=== PATIENT | male | born 1985 | race Caucasian/White ===

== ENCOUNTER 2022-05-13 07:19 | Emergency (ER) | payer BC ==
[2022-05-13] MEDS ORDERED: KETOROLAC 15 MG/ML 1 ML VIAL IVP STA (07:28)
[2022-05-13] MEDS ORDERED: HYDROmorphone 0.5 MG/0.5 ML SYRINGE IVP STA ×2 (07:28→08:25)
--- NOTE | 2022-05-13 07:35 | ED ---
Back Pain HPI - General Chief Complaint: Back Pain/Injury Stated Complaint: Back Pain Time Seen by Provider: 05/13/22 07:22 Source: patient, family, EMS, RN notes reviewed Mode of arrival: EMS Limitations: no limitations - History of Present Illness Initial Comments: This is a 36-year-old male who presents to the emergency department for back pain. On 05/04, the patient had lower back surgery at [facility]. He had replacement of lumbar spinal fusion hardware and replacement of the spinal cord stimulator with Dr. Gutiérrez. His original spinal fusion was done 10 years ago and the spinal cord stimulator was originally placed 3 years ago. They found that he had a fracture through the hardware and the spinal cord stimulator had not been effective. He had been healing well until yesterday, when he started to develop increasing pain. This morning, he felt a pop followed by a talbert of fluid in the lower back, and has had excruciating pain since. EMS gave him ketamine on route little to no relief. Denies any fevers, chills, sore throat, cough, dyspnea, chest pain, palpitations, abdominal pain, nausea, vomiting, diarrhea, or headaches. MD Complaint: back pain Onset/Timin -: days(s) - Related Data Home Medications Medication Instructions Recorded Confirmed Albuterol Inhaler [Ventolin Hfa 2 puff INHALATION QID PRN 01/20/16 01/20/16 Inhaler] Previous Rx's Medication Instructions Recorded Docusate [Colace] 100 mg PO DAILY PRN #12 capsule 01/20/16 Hydrocortisone [Anusol-Hc] 30 gm RC BID 10 Days cream..g. 01/20/16 Allergies Allergy/AdvReac Type Severity Reaction Status Date / Time peanut Allergy Dyspnea Verified 01/20/16 01:17 sulfamethoxazole Allergy Rash/Hives Verified 01/20/16 01:17 [From Bactrim] trimethoprim [From Bactrim] Allergy Rash/Hives Verified 01/20/16 01:17 Review of Systems ROS Statement: Those systems with pertinent positive or pertinent negative responses have been documented in the HPI. ROS Other: All systems not noted in ROS Statement are negative. Past Medical History Past Medical History: No Reported History History of Any Multi-Drug Resistant Organisms: MRSA Additional Past Surgical History / Comment(s): Spinal fusion, vasectomy Past Psychological History: PTSD Past Alcohol Use History: None Reported Past Drug Use History: None Reported General Exam General appearance: alert, in distress Head exam: Present: atraumatic, normocephalic, normal inspection Respiratory exam: Present: normal lung sounds bilaterally. Absent: respiratory distress, wheezes, rales, rhonchi, stridor Cardiovascular Exam: Present: normal rhythm, tachycardia, normal heart sounds. Absent: systolic murmur, diastolic murmur, rubs, gallop, clicks Back exam: Present: tenderness, other (Incision over the lumbar spine. Serous drainage. Surrounding erythema, tenderness, and mild swelling.). Absent: full ROM Neurological exam: Present: alert, oriented X3, CN II-XII intact Psychiatric exam: Present: normal affect, normal mood Skin exam: Present: warm, dry, intact, normal color. Absent: rash Course Vital Signs 05/13/22 05/13/22 05/13/22 07:25 08:00 08:30 Temperature 100.6 F H Pulse Rate 105 H 102 H 100 Respiratory 18 16 16 Rate Blood Pressure 119/82 125/74 111/67 O2 Sat by Pulse 97 96 96 Oximetry 05/13/22 05/13/22 05/13/22 09:00 10:00 10:30 Temperature Pulse Rate 99 93 90 Respiratory 18 16 16 Rate Blood Pressure 108/69 106/65 96/56 O2 Sat by Pulse 97 96 96 Oximetry 05/13/22 11:00 Temperature 99.0 F Pulse Rate 85 Respiratory 16 Rate Blood Pressure 90/55 O2 Sat by Pulse 97 Oximetry Medical Decision Making - Medical Decision Making This is a 36-year-old male who presents to the emergency department for postoperative back pain. Patient noted to be febrile and tachycardic on arrival at 100.6F. He was given Toradol and Dilaudid for the fever and pain control. This offered only minor improvement to his symptoms and he was subsequently given 15 mg of oxycodone. Lab work reveals leukocytosis. Computed tomography scan of the lumbar spine both with and without contrast obtained. COVID is negative. Urinalysis is negative for any signs of infection. Computed tomography scan of the lumbar spine revealed pneumorachis is at L4-L5, attributed to po stoperative changes. However, there was streak artifact, limiting evaluation on the computed tomography scan. Given the tachycardia, leukocytosis, febrile state, and increased drainage/tenderness around the incision, there is concern for the development of a postoperative infection. Patient will be transferred back to [facility] for further evaluation. Dr. Lamar is the accepting ER physician. Patient started on vancomycin prior to transfer. This case was discussed in detail with the attending ED physician. Presentation, findings, and treatment plan discussed in detail as well. - Lab Data Result diagrams: 05/13/22 07:34 05/13/22 07:34 Lab Results 05/13/22 05/13/22 05/13/22 Range/Units 07:34 07:34 07:34 WBC 16.5 H (3.8-10.6) k/uL RBC 4.28 L (4.30-5.90) m/uL Hgb 13.3 (13.0-17.5) gm/dL Hct 38.9 L (39.0-53.0) % MCV 90.9 (80.0-100.0) fL MCH 31.1 (25.0-35.0) pg MCHC 34.2 (31.0-37.0) g/dL RDW 11.8 (11.5-15.5) % Plt Count 251 (150-450) k/uL MPV 7.5 Neutrophils % 80 % Lymphocytes % 10 % Monocytes % 8 % Eosinophils % 1 % Basophils % 0 % Neutrophils # 13.2 H (1.3-7.7) k/uL Lymphocytes # 1.6 (1.0-4.8) k/uL Monocytes # 1.4 H (0-1.0) k/uL Eosinophils # 0.1 (0-0.7) k/uL Basophils # 0.0 (0-0.2) k/uL Sodium 135 L (137-145) mmol/L Potassium 3.7 (3.5-5.1) mmol/L Chloride 100 (98-107) mmol/L Carbon Dioxide 26 (22-30) mmol/L Anion Gap 9 mmol/L BUN 17 (9-20) mg/dL Creatinine 0.82 (0.66-1.25) mg/dL Est GFR (CKD-EPI)AfAm >90 (>60 ml/min/1.73 sqM) Est GFR (CKD-EPI)NonAf >90 (>60 ml/min/1.73 sqM) Glucose 119 H (74-99) mg/dL Plasma Lactic Acid Michael 1.6 (0.7-2.0) mmol/L Calcium 8.6 (8.4-10.2) mg/dL Total Bilirubin 0.5 (0.2-1.3) mg/dL AST 28 (17-59) U/L ALT 65 H (4-49) U/L Alkaline Phosphatase 113 (38-126) U/L Total Protein 5.7 L (6.3-8.2) g/dL Albumin 3.7 (3.5-5.0) g/dL Urine Color Urine Appearance (Clear) Urine pH (5.0-8.0) Ur Specific [place] (1.001-1.035) Urine Protein (Negative) Urine Glucose (UA) (Negative) Urine Ketones (Negative) Urine Blood (Negative) Urine Nitrite (Negative) Urine Bilirubin (Negative) Urine Urobilinogen (<2.0) mg/dL Ur Leukocyte Esterase (Negative) Coronavirus (PCR) (Not Detectd) 05/13/22 05/13/22 Range/Units 08:12 08:12 WBC (3.8-10.6) k/uL RBC (4.30-5.90) m/uL Hgb (13.0-17.5) gm/dL Hct (39.0-53.0) % MCV (80.0-100.0) fL MCH (25.0-35.0) pg MCHC (31.0-37.0) g/dL RDW (11.5-15.5) % Plt Count (150-450) k/uL MPV Neutrophils % % Lymphocytes % % Monocytes % % Eosinophils % % Basophils % % Neutrophils # (1.3-7.7) k/uL Lymphocytes # (1.0-4.8) k/uL Monocytes # (0-1.0) k/uL Eosinophils # (0-0.7) k/uL Basophils # (0-0.2) k/uL Sodium (137-145) mmol/L Potassium (3.5-5.1) mmol/L Chloride (98-107) mmol/L Carbon Dioxide (22-30) mmol/L Anion Gap mmol/L BUN (9-20) mg/dL Creatinine (0.66-1.25) mg/dL Est GFR (CKD-EPI)AfAm (>60 ml/min/1.73 sqM) Est GFR (CKD-EPI)NonAf (>60 ml/min/1.73 sqM) Glucose (74-99) mg/dL Plasma Lactic Acid Michael (0.7-2.0) mmol/L Calcium (8.4-10.2) mg/dL Total Bilirubin (0.2-1.3) mg/dL AST (17-59) U/L ALT (4-49) U/L Alkaline Phosphatase (38-126) U/L Total Protein (6.3-8.2) g/dL Albumin (3.5-5.0) g/dL Urine Color Yellow Urine Appearance Clear (Clear) Urine pH 5.5 (5.0-8.0) Ur Specific [place] >1.050 H (1.001-1.035) Urine Protein Trace H (Negative) Urine Glucose (UA) Negative (Negative) Urine Ketones Negative (Negative) Urine Blood Negative (Negative) Urine Nitrite Negative (Negative) Urine Bilirubin Negative (Negative) Urine Urobilinogen <2.0 (<2.0) mg/dL Ur Leukocyte Esterase Negative (Negative) Coronavirus (PCR) Not Detected (Not Detectd) - Radiology Data Radiology results: report reviewed, image reviewed Disposition Clinical Impression: Postoperative pain after spinal surgery Disposition: OTHER INSTITUTION NOT DEFINED Referrals: [facility],Clinic [Primary Care Provider] - 1-2 days - Out of Hospital Transfer - Req. Specs Out of Hospital Transfer - Requested Specifics: Other Emergency Center ([facility]
[2022-05-13 07:56] LABS: Basophils % (A) 0 %; Eosinophils # (A) 0.1 k/uL (0-0.7); Eosinophils % (A) 1 %; HCT 38.9 % (39.0-53.0); HGB 13.3 gm/dL (13.0-17.5); Lymphocytes # (A) 1.6 k/uL (1.0-4.8); Lymphocytes % (A) 10 %; MCH 31.1 pg (25.0-35.0); MCHC 34.2 g/dL (31.0-37.0); MCV 90.9 fL (80.0-100.0); Mean Platelet Volume 7.5; Monocytes # (A) 1.4 k/uL (0-1.0); Monocytes % (A) 8 %; Neutrophils # (A) 13.2 k/uL (1.3-7.7); Neutrophils % (A) 80 %; Platelet Count 251 k/uL (150-450); RBC 4.28 m/uL (4.30-5.90); RDW 11.8 % (11.5-15.5); WBC 16.5 k/uL (3.8-10.6)
[2022-05-13 08:05] LABS: ALT 65 U/L (4-49); AST 28 U/L (17-59); African American GFR (CKD) >90 (>60 ml/min/1.73 sqM); Albumin 3.7 g/dL (3.5-5.0); Alkaline Phosphatase 113 U/L (38-126); Anion Gap 9 mmol/L; Blood Urea Nitrogen 17 mg/dL (9-20); Calcium 8.6 mg/dL (8.4-10.2); Carbon Dioxide 26 mmol/L (22-30); Chloride 100 mmol/L (98-107); Glucose 119 mg/dL (74-99); Non-African American GFR(CKD) >90 (>60 ml/min/1.73 sqM); Potassium 3.7 mmol/L (3.5-5.1); Sodium 135 mmol/L (137-145); Total Bilirubin 0.5 mg/dL (0.2-1.3); Total Protein 5.7 g/dL (6.3-8.2)
[2022-05-13] MEDS ORDERED: oxyCODONE-APAP 10-325MG 1 EACH TAB PO ONE (08:52)
--- NOTE | 2022-05-13 09:29 | CT ---
EXAMINATION TYPE: CT lumbar spine wo/w con CT DLP: 2119.6 mGycm, Automated exposure control for dose reduction was used. DATE OF EXAM: 05/13/2022 8:50 AM COMPARISON: None. CLINICAL INDICATION:Male, 36 years old with history of Postoperative back pain, fever, leukocytosis, Post Op back pain TECHNIQUE: Multiple axial images were obtained from the midportion of T11 through the sacroiliac gutierrez nts. Soft tissue and bone windows in coronal and sagittal planes were obtained and reviewed. 3-D ref ormats of the bones were created on a separate workstation and submitted for review. FINDINGS: Alignment: There are 5 lumbar type vertebral bodies within normal alignment. Bone: Streak artifact limits evaluation. No evidence of fracture is identified. Postoperative change s are seen involving L4-L5 and S1. There is discectomy changes at L4-L5 and L5-S1. Moderate degenerat ion changes at the sacroiliac joints bilaterally. Discs: T12-L1: No spinal canal or neural foraminal stenosis is identified. L1-L2: No spinal canal or neural foraminal stenosis is identified. L2-L3: No spinal canal or neural foraminal stenosis is identified. L3-L4: No spinal canal or neural foraminal stenosis is identified. L4-L5: Disc is surgically absent. No spinal canal or neural foraminal stenosis is identified. L5-S1: Disc is surgically absent. No spinal canal or neural foraminal stenosis is identified. Other: Focus of gas within the spinal canal at L4-L5 on the left. No definitive organizing fluid xochitl ection in the surgical bed however evaluation is is limited by streak artifact. IMPRESSION: 1. Post surgical changes with hardware intact. No evidence of organizing fluid collection however marti luation is limited due to streak artifact. 2. Focus of pneumorachis at the level L4-L5, given recent history of surgery this is likely postsurgi heydi. 3. Moderate sacroiliac joint degeneration changes.
[2022-05-13] MEDS ORDERED: VANCOMYCIN 1,500 MG in SODIUM CHLORIDE 0.9% 250 ML IVPB ONE (10:00)
[2022-05-13 11:33] VITALS: PULSE 85; RESP 16; TEMP 99
[2022-05-13 12:19] LABS: Appearance,Urine Clear (Clear); Bilirubin,Urine Negative (Negative); Blood,Urine Negative (Negative); Color,Urine Yellow; Glucose,Urine (UA) Negative (Negative); Ketones,Urine Negative (Negative); Leukocyte Esterase,Urine Negative (Negative); Nitrite,Urine Negative (Negative); PH, Urine 5.5 (5.0-8.0); Protein,Urine Trace (Negative); Urobilinogen,Urine <2.0 mg/dL (<2.0)
[2022-05-13 12:20] LABS: Specific Gravity,Urine >1.050 (1.001-1.035)
[2022-05-13 13:02] VITALS: BP 92/55
[2022-05-13] MEDS ORDERED: VANCOMYCIN 1,500 MG in SODIUM CHLORIDE 0.9% 250 ML IVPB SCH (20:00)
== END 2022-05-13 12:50 | disposition other institution (70) ==
LOC: EC 07:19
DX: G89.18 Other acute postprocedural pain (principal); Z91.010 Allergy to peanuts; Z88.2 Allergy status to sulfonamides; Z88.8 Allergy status to other drugs, medicaments and biological substances
CPT/HCPCS: 36415; 80053; 83605; 85025; 81003; 87040; 87635; 72133; 99284; 96365; 96366; 96375; 96376; J3370; J1885; J1170; Q9967